=== PATIENT | female | born 2000 | race Caucasian/White ===

== ENCOUNTER 2024-04-16 09:04 | Emergency (ER) | payer OTHER ==
[~2024-04-16] VITALS: Ht 162.6 cm; Wt 99.5 kg
[2024-04-16 09:26] VITALS: BP 106/77; PULSE 82; RESP 18; TEMP 97.9; O2SAT 98
[2024-04-16 09:45] VITALS: O2SAT 98
== END 2024-04-16 10:28 | disposition home or self-care (01) ==
LOC: MED 09:04
DX: R10.12 Left upper quadrant pain (principal); R11.0 Nausea
CPT/HCPCS: 81002; 81025; 99282